=== PATIENT | female | born 2000 | race Caucasian/White ===

== ENCOUNTER 2019-08-05 16:44 | Outpatient (CLI) | payer MEDICAID, SELFPAY ==
--- NOTE | 2019-08-05 | XR_ITS ---
WS: [id number] CHEST 2 VIEWS HISTORY: CHEST PAIN COMPARISON: None available. Lungs: Clear with no abnormality. No pleural effusion or pneumothorax. Cardiac size: Normal. Mediastinum/Aorta: Normal mediastinum. Bones: Normal. XR/XR chest 2V* [id number] IMPRESSION: Normal chest.
== END 2019-08-05 16:45 | disposition home or self-care (01) ==
PROVIDERS: Family Provider Family Medicine; Visit Provider Family Medicine
DX: R07.9 Chest pain, unspecified (principal)
CPT/HCPCS: 71046

== ENCOUNTER → 2021-06-10 08:15 | Outpatient (BNVA) | payer BC, SELFPAY | PROVIDERS: Family Provider Family Medicine; Referring Provider Obstetrics & Gynecology; Visit Provider Obstetrics & Gynecology | DX: O99.340 Other mental disorders complicating pregnancy, unspecified trimester (principal); F41.9 Anxiety disorder, unspecified; F32.A Depression, unspecified; O99.320 Drug use complicating pregnancy, unspecified trimester; F12.90 Cannabis use, unspecified, uncomplicated | CPT/HCPCS: 81000 ==

== ENCOUNTER 2021-06-17 18:45 | Outpatient (CLI) | payer BC, SELFPAY ==
[2021-06-17] VITALS (16 sets, daily range): BP systolic 101–127; BP diastolic 59–72; PULSE 94–158; RESP 16; TEMP 36.8; O2SAT 97–99; BMI 25.2
[2021-06-17 19:31] LABS: Actim Prom Negative
== END 2021-06-17 20:34 | disposition home or self-care (01) ==
LOC: OPOB 18:53 → OBGYN 18:59
PROVIDERS: Family Provider Family Medicine; Visit Provider Family Medicine
DX: O26.899 Other specified pregnancy related conditions, unspecified trimester (principal); Z3A.00 Weeks of gestation of pregnancy not specified; R10.9 Unspecified abdominal pain
CPT/HCPCS: 59025; 84112; 99211

== ENCOUNTER → 2021-07-05 13:17 | Outpatient (BNVA) | payer BC, MEDICAID, SELFPAY | PROVIDERS: Family Provider Family Medicine; Visit Provider Obstetrics & Gynecology | DX: O99.320 Drug use complicating pregnancy, unspecified trimester (principal); O99.340 Other mental disorders complicating pregnancy, unspecified trimester; F41.9 Anxiety disorder, unspecified; F32.A Depression, unspecified; F12.90 Cannabis use, unspecified, uncomplicated | CPT/HCPCS: 84315; 87081 ==

== ENCOUNTER 2021-07-20 16:00 | Outpatient (CLI) | payer BC, MEDICAID, SELFPAY ==
[2021-07-20 16:00] VITALS: BMI 26.6
[2021-07-20 16:28] VITALS: BP 117/74; PULSE 83
[2021-07-20 16:48] VITALS: BP 117/71; PULSE 82
[2021-07-20 17:08] VITALS: BP 118/67; PULSE 75
[2021-07-20 17:29] VITALS: BP 111/74; PULSE 73
[2021-07-20 17:49] VITALS: BP 120/73; PULSE 74
[2021-07-20 18:31] VITALS: BP 120/73; PULSE 74; RESP 18; TEMP 36.1
== END 2021-07-20 18:10 | disposition home or self-care (01) ==
LOC: OPOB 16:03 → OBGYN 16:04
PROVIDERS: Family Provider Family Medicine; Visit Provider Obstetrics & Gynecology
DX: O26.899 Other specified pregnancy related conditions, unspecified trimester (principal); Z3A.00 Weeks of gestation of pregnancy not specified; R10.9 Unspecified abdominal pain
CPT/HCPCS: 59025; 83986; 99211

== ENCOUNTER → 2021-07-23 08:37 | Outpatient (BNVA) | payer BC, MEDICAID, SELFPAY | PROVIDERS: Family Provider Family Medicine; Visit Provider Obstetrics & Gynecology | DX: Z34.80 Encounter for supervision of other normal pregnancy, unspecified trimester (principal) | CPT/HCPCS: 81000 ==

== ENCOUNTER 2021-07-29 19:42 | Inpatient (IN) | payer BC, MEDICAID, SELFPAY ==
[2021-07-29] VITALS (9 sets, daily range): BP systolic 115–150; BP diastolic 58–96; PULSE 77–97; BMI 27.2
[2021-07-29 21:52] LABS: Basophils # 0.1 10^3/uL (0.0-0.1); Basophils % 0.7 %; Eosinophils # 0.1 10^3/uL (0.0-0.8); Hematocrit 35.2 % (37.0-47.0); Hemoglobin 11.8 g/dL (11.5-15.3); Lymphocytes # 2.6 10^3/uL (0.8-4.8); Lymphocytes % 20.4 %; Mean Corpuscular HGB Conc 33.5 g/dL (30.0-36.0); Mean Corpuscular Hemoglobin 31.7 pg (28.0-34.0); Mean Corpuscular Volume 94.6 fl (81-99); Mean Platelet Volume 11.9 fL (7.4-10.4); Monocytes # 0.7 10^3/uL (0.2-0.9); Monocytes % 5.6 %; Neutrophils # 9.04 10^3/uL (1.8-7.7); Neutrophils % 71.7 %; Nucleated Red Blood Cells % 0 %; Platelet Count 198 10^3/cmm (130-400); Red Blood Count 3.72 10^6/uL (4.1-5.3); Red Cell Distribution Width 13.9 % (12.1-15.1); White Blood Count 12.6 10^3/uL (4.0-10.0)
[2021-07-29] MEDS: dextrose 5%-lactated ringers 1,000 ML 125 ML IV (22:02)
[2021-07-29] MEDS: ampicillin 2,000 MG in sodium chloride 0.9% (plus) 50 ML 100 MG IV (22:03)
[2021-07-29] MEDS: oxytocin 30 UNIT/500 ML BAG IV (22:55)
[2021-07-30] VITALS (63 sets, daily range): BP systolic 104–200; BP diastolic 54–132; PULSE 51–160; RESP 16–18; TEMP 36.3–37.6; O2SAT 91–100
[2021-07-30] MEDS: ampicillin 1,000 MG in sodium chloride 0.9% (plus) 50 ML 100 MG IV ×2 (02:43→06:36)
--- NOTE | 2021-07-30 06:30 | P.HPUD_ITS ---
Surgery/Procedure H&P Update DATE OF PROCEDURE: July 30, 2021 DATE H&P PERFORMED: 07/23/21 H&P UPDATE INFORMATION: I have reviewed H&P completed within last 30 days, I have examined patient prior to procedure and No changes to prior documentation CHANGES TO PREVIOUS DOCUMENTATION: The patient is here for induction of labor. No changes to cervical exam. /- 2
[2021-07-30] MEDS: lactated ringers 1,000 ML 999 ML IV ×2 (07:49→08:21)
[2021-07-30] MEDS: dextrose 5%-lactated ringers 1,000 ML 125 ML IV (08:21)
--- NOTE | 2021-07-30 08:37 | ANES.PREANE2 ---
Pre-Anesthetic Assessment Height/Weight: Height 1.57 m Weight 67.585 kg Temp Pulse Resp BP Pulse Ox 97.3 F L 82 16 126/93 99 07/30/21 08:29 07/30/21 08:33 07/30/21 01:29 07/30/21 08:32 07/30/21 08:33 Familial anesthetic complications: None Was Beta Kain taken within 24 hours: N/A Was Clonidine taken within 24 hours: N/A Social No alcohol and No tobacco Exam alert, oriented x 3, clear to auscultation bilaterally and regular rate & rhythm Airway Submandibular: within normal limits Cervical ROM: within normal limits Mallampati: Class II Dentition: chipped Neuropsych Anxiety and Depression Anesthetic Plan ASA status: 2 Anesthesia: Regional (specify below) (Labor epidural) Medications/Allergies Home Medications Medication Instructions Recorded Confirmed Last Taken Type docosahexaenoic acid 200 mg 200 mg PO DAILY 06/10/21 07/23/21 Unknown History capsule ( DHA) Allergies Allergy/AdvReac Type Severity Reaction Status Date / Time No Known Allergies Allergy Verified 07/23/21 08:36 Current Medications Generic Name Dose Route Start Last Admin Trade Name Freq PRN Reason Stop Dose Admin Ampicillin Sodium 1,000 mg/ 50 mls @ 100 mls/hr 07/30/21 01:45 07/30/21 06:36 Sodium Chloride IV 100 mls/hr Q4H VOLODYMYR Administration Protocol Dextrose/Lactated Ringer's 1,000 mls @ 125 mls/hr 07/29/21 21:45 07/30/21 08:21 Dextrose 5%-Lactated Ringers IV 125 mls/hr .Q8H VOLODYMYR Administration Oxytocin 30 unit in 500 mls @ 1 mls/hr 07/29/21 22:00 07/30/21 06:52 Pitocin IV 0 milliunit/min .Q24H VOLODYMYR 0 mls/hr Titration Protocol 1 MILLIUNIT/MIN Ropivacaine 200 mg in 100 mls @ 13 mls/hr 07/30/21 07:15 07/30/21 08:22 Naropin Premix EPIDURAL 13 mls/hr .Q7H42M VOLODYMYR Administration Lactated Ringer's 1,000 mls @ 999 mls/hr 07/30/21 07:11 07/30/21 08:21 Lactated Ringers IV 999 mls/hr .Q1H1M PRN Administration See label comments PFSH Anesthesia Medical History No pertinent past medical history Surgical History No pertinent past surgical history Family History Mother Breast cancer, Onset Age: 35 Denies family history of Diabetes CAD (coronary artery disease) Clotting disorder Hyperlipidemia Chronic kidney disease (CKD) Bleeding disorder Hypertension Thyroid disease Stroke Female Reproductive History : 2 Data Anesthesia : 07/29/21 21:06 Short CBC 07/29/21 Range/Units 21:06 WBC 12.6 H (4.0-10.0) 10^3/uL Hgb 11.8 (11.5-15.3) g/dL Hct 35.2 L (37.0-47.0) % MCV 94.6 (81-99) fl Plt Count 198 (130-400) 10^3/cmm Neut % (Auto) 71.7 % Neut # (Auto) 9.04 H (1.8-7.7) 10^3/uL Cardiac Studies: No Data to Display
--- NOTE | 2021-07-30 08:41 | ANES.PROC ---
Anesthesia Procedures Procedure/Date: 07/30/21 Epidural: Time Out Performed: Yes Consents Signed: Procedure Consent Consent: requested by attending/covering physician, from patient, risks and benefits reviewed and patient agrees to proceed Lumbar Level: L3-L4 Epidural position: sitting Epidural procedure: sterile prep of area, 1% lidocaine to numb the area, 18 g needle, neg for paresthesia, test dose given, 1.5% xylocaine 1:200k epi, placed PCEA, no systemic response, sterile dressing applied and 0.2% Ropiavacaine @ mls/hr (13) Additional Comments: LAURA at 4cm, cath at 9cm, bolused 5mls of 2% lido PF
[2021-07-30] MEDS: lidocaine 2% INJ 20 mL INJECTION (09:25)
--- NOTE | 2021-07-30 10:48 | P.PCNOB_ITS ---
Delivery Note: Date of delivery: July 30, 2021 Pre-delivery diagnoses: iup @ 39 weeks, 1 day. induction per patient request Post-delivery diagnoses: same Procedure: Delivering Physician: anika Estimated blood loss (mL): 50 Findings: term male in the GAIL presentation Pre-Delivery Course: The patient was admitted for induction at term. She received pitocin augmentation and then had AROM. She had complete cervical dilation and began pushing Delivery: The patient had complete cervical dilation and began to push. The head delivered in the GAIL position over an midline episiotomy under[ ] anesthesia. The nose and mouth were bulb suctioned. The shoulders and body delivered atraumatically. The baby was placed onto the mother's abdomen. The cord was clamped and cut. Cord blood was obtained. The placenta delivered spontaneously. It was inspected and found to be intact. Inspection of the perineum revealed no extension of the episiotomy. It was repaired in the usual fashion. Estimated blood loss 50 mL. Apgars on baby were 8 at 1 minute and 9 at 5 minutes. Weight of baby is 7 pounds 10 ounces. Mother and baby were stable post delivery. History History History 2 Term 1 Miscarriages/Ectopic 0 0 Living Children 1 Coding Level of Care Code Acute [employer] for Chg Shin
--- NOTE | 2021-07-30 10:49 | PC.NURSE ---
Chux was changed at this time. Angelica care performed
[2021-07-30] MEDS: ondansetron 2 mg/ML SDV 2 mL 4 MG IVP (11:35)
[2021-07-30] MEDS: HYDROcodone-acetaminophen 5-325 mg Tablet PO (11:39)
--- NOTE | 2021-07-30 11:41 | PC.NURSE ---
Wagon Winder in room to assess patient, patient reports she is very nauseous and in a lot of pain. Patient noted to have chewing tobacco in her mouth and health underwriter requested patient take it out of her mouth. Zofran and hydrocodone administered, see MAR.
[2021-07-30] MEDS: ibuprofen 800 mg tablet PO ×2 (15:08→21:23)
--- NOTE | 2021-07-30 16:10 | ANE.PACU2 ---
Inpatient post-anesthesia follow up: Airway intact: Yes Vital signs: Temperature 98.1 F Pulse Rate 75 Respiratory Rate 18 Blood Pressure 116/75 Pulse Oximetry 98 Oxygen Delivery Me thod Room Air Oxygen Flow Rate Fraction of Inspir ed Oxygen Hydration adequate: Yes Nausea and vomiting: No Pain level: 2 Mental status: Baseline
[2021-07-30] MEDS: docusate sodium 100 mg Capsule PO (18:01)
[2021-07-30 21:59] LABS: Hematocrit 33.2 % (37.0-47.0); Hemoglobin 11.2 g/dL (11.5-15.3); Mean Corpuscular HGB Conc 33.7 g/dL (30.0-36.0); Mean Corpuscular Hemoglobin 31.6 pg (28.0-34.0); Mean Corpuscular Volume 93.8 fl (81-99); Mean Platelet Volume 11.8 fL (7.4-10.4); Platelet Count 191 10^3/cmm (130-400); Red Blood Count 3.54 10^6/uL (4.1-5.3); Red Cell Distribution Width 13.9 % (12.1-15.1)
[2021-07-31] VITALS: BP 125/63; PULSE 70; RESP 18; TEMP 36.8
[2021-07-31 04:00] VITALS: BP 135/84; PULSE 56; RESP 18; TEMP 36.9
[2021-07-31] MEDS: docusate sodium 100 mg Capsule PO (10:21)
[2021-07-31] MEDS: ibuprofen 800 mg tablet PO (10:21)
[2021-07-31] MEDS: prenatal vitamin Capsule 1 CAP PO (10:21)
--- NOTE | 2021-07-31 13:20 | PM.DCS ---
Discharge Providers Date of Admission: 07/29/21 19:42 Date of Discharge: July 31, 2021 Attending Provider at Admission: Stefani Shukla MD Attending Provider at Discharge: Stefani Shukla MD Reason for Visit Reason for Visit: induction Hospital Course Hospital Course The patient was admitted for induction of labor at term. She had spontaneous delivery of a term male . She did well and was ready for discharge on day #1 Physical Exam Narrative: doing well today. No complaints. Const: COMMON NORMALS: no acute distress, average body habitus, patient oriented x3, no limitations, healthy appearing, alert and well nourished GENERAL APPEARANCE: cooperative, comfortable, well kempt and well developed ORIENTATION/CONSCIOUSNESS: Yes awake, Yes oriented to person, Yes oriented to place and Yes oriented to time Resp: COMMON NORMALS: normal respiratory effort EFFORT & INSPECTION: Yes able to speak in complete sentences GI: COMMON NORMALS: Soft to palpation and non-tender PALPATION: Yes Soft to palpation Extremity: COMMON NORMALS: no calf tenderness Neuro: COMMON NORMALS: patient oriented x3 SENSORIUM/ORIENTATION: Yes alert, Yes oriented to person, Yes oriented to place and Yes oriented to time Psych: APPEARANCE: Yes well kempt Urinary Catheter Management: Koo: Cath Placed During This Visit: yes, but has since been removed by the nurse Reason for Continuing Indwelling Catheter: Decision to DC Catheter Urinary Catheter Date of Insertion: 07/30/21 Urinary Catheter Time of Insertion: 08:20 Date Urinary Catheter Removed: 07/30/21 Time Urinary Catheter Discontinued: 09:05 Discharge Data Studies Completed and Pending Laboratory Results WBC 15.0 10^3/uL (4.0-10.0) H 07/30/21 21:45 RBC 3.54 10^6/uL (4.1-5.3) L 07/30/21 21:45 Hgb 11.2 g/dL (11.5-15.3) L 07/30/21 21:45 Hct 33.2 % (37.0-47.0) L 07/30/21 21:45 MCV 93.8 fl (81-99) 07/30/21 21:45 MCH 31.6 pg (28.0-34.0) 07/30/21 21:45 MCHC 33.7 g/dL (30.0-36.0) 07/30/21 21:45 RDW 13.9 % (12.1-15.1) 07/30/21 21:45 Plt Count 191 10^3/cmm (130-400) 07/30/21 21:45 MPV 11.8 fL (7.4-10.4) H 07/30/21 21:45 Neut % (Auto) 71.7 % 07/29/21 21:06 Lymph % (Auto) 20.4 % 07/29/21 21:06 Stanley % (Auto) 5.6 % 07/29/21 21:06 Eos % (Auto) 1.0 % 07/29/21 21:06 Baso % (Auto) 0.7 % 07/29/21 21:06 Neut # (Auto) 9.04 10^3/uL (1.8-7.7) H 07/29/21 21:06 Lymph # (Auto) 2.6 10^3/uL (0.8-4.8) 07/29/21 21:06 Stanley # (Auto) 0.7 10^3/uL (0.2-0.9) 07/29/21 21:06 Eos # (Auto) 0.1 10^3/uL (0.0-0.8) 07/29/21 21:06 Baso # (Auto) 0.1 10^3/uL (0.0-0.1) 07/29/21 21:06 Nucleated RBC % (auto) 0 % 07/29/21 21:06 Nucleated RBCs # 0.0 /100WBC 07/29/21 21:06 Vitals Last Vital Signs Temp 98.4 F 07/31/21 04:00 Pulse 56 L 07/31/21 04:00 Resp 18 07/31/21 04:00 BP 135/84 07/31/21 04:00 Pulse Ox 98 07/30/21 12:48 Discharge Plan Discharge Patient Disposition: Home Condition: Stable Prescriptions: Continued DHA 200 mg capsule 200 mg PO DAILY 0RF Discharge Orders: Discharge Order (Routine); Ordered 07/31/21 Ordered By: Stefani Shukla Patient Instructions: Depression (DC), Bleeding (DC), Preeclampsia and Eclampsia After Delivery (GEN), OB Discharge Report, OB Food/Drug Interaction Guide, OB Care at Home, Opioid Safety, OB Home Care, OB Vaginal Deliveries - [facility], Abnormal Bleeding Discharge Attestations Time Spent in Discharge Care*: less than 30 min Quality Metrics Clinical Quality Measures [ No reported AMI, CVA or VTE this stay] Coding Level of Care Code Acute Chg FW DC note
[2021-07-31 15:00] VITALS: BP 124/83; PULSE 83; RESP 16; TEMP 36.5
== END 2021-07-31 15:10 | disposition home or self-care (01) | DRG 807 ==
LOC: OPOB 19:43 → OBGYN 19:43
PROVIDERS: Admitting Provider Obstetrics & Gynecology; Visit Provider Obstetrics & Gynecology
DX: O99.334 Smoking (tobacco) complicating childbirth (principal); Z37.0 Single live birth; F17.210 Nicotine dependence, cigarettes, uncomplicated; O99.344 Other mental disorders complicating childbirth; O99.324 Drug use complicating childbirth; F12.90 Cannabis use, unspecified, uncomplicated; Z3A.39 39 weeks gestation of pregnancy; F41.8 Other specified anxiety disorders; O99.824 Streptococcus B carrier state complicating childbirth
CPT/HCPCS: 36415; 51702; 59409; 85025; 85027; J0290; J2405; J2795

== ENCOUNTER 2023-07-04 10:57 | Outpatient (CLI) | payer BC, MEDICAID, SELFPAY ==
[2023-07-04 11:07] VITALS: TEMP 35.9
[2023-07-04 11:08] VITALS: BP 116/63; PULSE 90; TEMP 36.1
[2023-07-04 11:11] VITALS: BMI 26.9
[2023-07-04 11:24] VITALS: BP 109/64; PULSE 99
[2023-07-04 11:38] VITALS: BP 105/58; PULSE 93
[2023-07-04 11:42] VITALS: RESP 15
[2023-07-04 12:03] LABS: Basophils # 0.1 10^3/uL (0.0-0.1); Basophils % 0.8 %; Eosinophils # 0.3 10^3/uL (0.0-0.8); Eosinophils % 1.8 %; Hematocrit 33.5 % (36-47); Lymphocytes # 3.6 10^3/uL (0.8-4.8); Lymphocytes % 19.6 %; Mean Corpuscular HGB Conc 32.5 g/dL (30-55); Mean Corpuscular Hemoglobin 29.5 pg (27-33); Mean Corpuscular Volume 90.5 fl (85-98); Mean Platelet Volume 10.3 fL (7.4-10.4); Monocytes # 1.3 10^3/uL (0.2-0.9); Monocytes % 7.1 %; Neutrophils # 12.78 10^3/uL (1.8-7.7); Nucleated Red Blood Cells % 0 %; Platelet Count 307 10^3/cmm (157-399); White Blood Count 18.23 10^3/uL (3.29-11.43)
[2023-07-04 12:36] LABS: Alanine Aminotransferase 7 U/L (0-33); Albumin Level 3.3 g/dL (3.5-5.2); Alkaline Phosphatase 139 U/L (35-105); Anion Gap 13.8 (5-19); Aspartate Amino Transferase 13 U/L (0-32); Blood Urea Nitrogen 3 mg/dL (6-20); Calcium 8.9 mg/dL (8.5-10.5); Carbon Dioxide 20 mmol/L (22-29); Chloride 107 mmol/L (98-107); Creatinine Clr Calc Pharmacy 192.5512; Globulin 3.1 g/dL (1.3-4.6); Glomerular Filtration Rate 194.5 mL/min (90-130); Glucose 67 mg/dL (65-115); Osmolality Calculated 279 mOsm/kg (285-295); Potassium 3.8 mmol/L (3.5-5.1); Sodium 137 mmol/L (136-145); Total Bilirubin 0.2 mg/dL (0.15-1.2); Total Protein 6.4 g/dL (6.6-8.7)
[2023-07-04 12:39] LABS: Bilirubin Urine Neg (Negative); Blood Urine Neg (Negative); Glucose Urine UA 1+ (Normal); Ketones Urine Negative (Negative); Leukocyte Esterase Urine Negative (Negative); Nitrate Urine Negative (Negative); Protein Urine Neg (Negative); Specific Gravity, Urine 1.015 (1.005-1.030); Urine Appearance Clear (CLEAR); Urine Color Yellow (Yellow); Urobilinogen Urine Norm (Negative); pH Urine 6 (5-7)
[2023-07-04 12:56] LABS: Renal Epithelial Cells Urine RARE /hpf; WBC Urine 0-4 /hpf (0-5)
[2023-07-04 12:57] LABS: Add Urine Culture? No
[2023-07-04 13:15] VITALS: BP 105/58; PULSE 53; RESP 15
== END 2023-07-04 13:15 | disposition home or self-care (01) ==
LOC: OPOB 11:02 → OBGYN 11:03
PROVIDERS: Visit Provider Family Medicine
DX: O26.899 Other specified pregnancy related conditions, unspecified trimester (principal); Z3A.00 Weeks of gestation of pregnancy not specified; R10.11 Right upper quadrant pain
CPT/HCPCS: 36415; 59025; 80053; 81001; 85025; 99211